=== PATIENT | female | born 1985 | race Caucasian/White ===

== ENCOUNTER 2021-04-06 09:22 | Emergency (ER) | payer OTHER ==
[2021-04-06 11:05] LABS: MONOSPOT (MONONUCLEOSIS) NEGATIVE (NEGATIVE)
[2021-04-06 11:12] LABS: ALBUMIN 2.7 g/dL (3.4-5.0); BILIRUBIN - TOTAL 0.4 mg/dL (0.2-1.0); BUN/CREAT RATIO (CALC) 14.7 RATIO; CREATININE 0.68 mg/dL (0.51-0.95); GLOBULIN (CALCULATION) 4.7 g/dL; POTASSIUM 3.2 mmol/L (3.5-5.1); TOTAL PROTEIN 7.4 g/dL (6.4-8.2)
[2021-04-06 11:36] LABS: BASOPHIL 0.1 % (0-2); EOSINOPHIL 0 % (0-5); HCT 33.6 % (37.0-47.0); HGB 10.6 g/dl (12.5-16.0); LYMPHOCYTE 5.2 % (15-48); MCH 28.1 pg (25.0-31.0); MCHC 31.5 g/dL (32.0-36.0); MCV 89.1 fL (78.0-100.0); MONOCYTE 3.3 % (0-12); MPV 9.9 fL (6.0-9.5); NEUTROPHIL 89.8 % (41-80); NRBC 0; PLT 373 K/uL (150-400); RBC 3.77 M/uL (4.20-5.40); RDW 15.2 % (11.5-14.0); WBC 15.2 K/uL (4.0-10.5)
[2021-04-06 11:45] LABS: CORONAVIRUS 2019 SARS-COV-2 NEGATIVE (NEGATIVE); INFLUENZA A NAA NEGATIVE (NEGATIVE)
[2021-04-07 08:06] LABS: BASOPHIL 0.1 % (0-2); EOSINOPHIL 0 % (0-5); HCT 31.3 % (37.0-47.0); HGB 9.8 g/dl (12.5-16.0); MCH 27.8 pg (25.0-31.0); MCHC 31.3 g/dL (32.0-36.0); MCV 88.9 fL (78.0-100.0); MONOCYTE 5.3 % (0-12); MPV 9.6 fL (6.0-9.5); NEUTROPHIL 87.7 % (41-80); NRBC 0; PLT 366 K/uL (150-400); RBC 3.52 M/uL (4.20-5.40); RDW 15.3 % (11.5-14.0); WBC 23.8 K/uL (4.0-10.5)
[2021-04-07 08:27] LABS: ALBUMIN 2.3 g/dL (3.4-5.0); BILIRUBIN - TOTAL 0.2 mg/dL (0.2-1.0); BUN/CREAT RATIO (CALC) 18.2 RATIO; CREATININE 0.55 mg/dL (0.51-0.95); GLOBULIN (CALCULATION) 5.4 g/dL; TOTAL PROTEIN 7.7 g/dL (6.4-8.2)
== END 2021-04-07 21:30 | disposition other institution (70) ==
LOC: FER 09:22
PROVIDERS: Emergency Medicine
DX: J05.10 Acute epiglottitis without obstruction (principal); Z20.822 Contact with and (suspected) exposure to COVID-19
CPT/HCPCS: 36415; 70360; 70491; 80053; 85025; 86308; 87880; 96372; J0696; J1100; J1644; J2405; J3370; J3480; J7030; J7050; Q9967; U0002